=== PATIENT | female | born 1990 | race Caucasian/White ===

== ENCOUNTER 2022-08-31 | Outpatient (REF) | payer OTHER, SELFPAY ==
[2022-08-31 13:17] LABS: Cholesterol 342 mg/dL; Glucose Random 72 mg/dL (60-115); HDL Cholesterol 36 mg/dL; Triglycerides 1043 mg/dL
== END 2022-08-31 00:01 ==
LOC: HO.LHD
PROVIDERS: Visit Provider Psychiatry & Neurology Psychiatry
DX: Z79.899 Other long term (current) drug therapy (principal)
CPT/HCPCS: 36415; 80061; 82947